=== PATIENT | male | born 1960 | race Two or more races ===

== ENCOUNTER → 2018-04-24 | Outpatient (CLI) | payer OTHER ==
[2018-04-24 17:15] LABS: BASOPHILS % (AUTO) 0.9 % (0.0-2.0); EOSINOPHILS % (AUTO) 3.3 % (1.0-6.0); HEMATOCRIT 49.6 % (41-53); HEMOGLOBIN 16.6 g/dL (13.5-17.5); LYMPHOCYTES # (AUTO) 2.5 K/uL (1.0-4.8); LYMPHOCYTES % (AUTO) 25.9 % (22.0-44.0); MEAN CORPUSCULAR HEMOGLOBIN 24.9 pg (26.0-34.0); MEAN CORPUSCULAR HGB CONC 33.5 G/dL (31.0-37.0); MEAN CORPUSCULAR VOLUME 74 fL (80-100); MONOCYTES # (AUTO) 0.8 K/uL (0.1-1.0); MONOCYTES % (AUTO) 8.2 % (2.0-9.0); NEUTROPHILS # (AUTO) 5.9 K/uL (1.8-7.7); NEUTROPHILS % (AUTO) 61.7 % (40.0-70.0); RED BLOOD CELL COUNT(AUTO) 6.68 MIL/uL (4.50-5.90); RED CELL DISTRIBUTION WIDTH 16.9 % (11.5-14.5)
[2018-04-24 17:17] LABS: APPEARANCE,URINE CLEAR (CLEAR); BILIRUBIN,URINE NEGATIVE (NEGATIVE); GLUCOSE, URINE (UA) NEGATIVE (NEGATIVE); KETONES,URINE NEGATIVE (NEGATIVE); LEUKOCYTE ESTERASE ,URINE NEGATIVE (NEGATIVE); NITRATE,URINE NEGATIVE (NEGATIVE); OCCULT BLOOD,URINE NEGATIVE (NEGATIVE); PH,URINE 6.5 (5.0-8.0); PROTEIN,URINE NEGATIVE (NEGATIVE)
[2018-04-24 17:30] LABS: ANION GAP 8 mmol/L (8-16); CARBON DIOXIDE 31 mmol/L (22-29); CHLORIDE 104 mmol/L (98-107); CREATININE 0.94 mg/dL (0.60-1.30); GLOMERULAR FILTR. RATE CALC > 60 mL/min (>60); POTASSIUM 4.3 mmol/L (3.5-5.1); SODIUM SERUM 143 mmol/L (136-145); UREA NITROGEN, BLOOD 13 mg/dL (7-18)
[2018-04-24 18:14] LABS: HEMOGLOBIN A1C 5.7 % (4.5-6.2)
[2018-04-24 18:15] LABS: PLATELET COUNT (AUTO) 119 K/uL (150-450)
== END | disposition home or self-care (01) ==
LOC: MSR 16:01
DX: M72.2 Plantar fascial fibromatosis (principal)
CPT/HCPCS: 82565; 83036; 84520; 93005

== ENCOUNTER → 2018-05-05 | Day surgery (SDC) | payer OTHER ==
[~2018-05-05] VITALS: Ht 172.7 cm; Wt 102.3 kg
[~2018-05-05] MED LIST: ASPI-1182 PO; ATEN50TA PO; FentaNYL CITRATE-PF 100 MCG/2 ML VIAL IVP ONE; FentaNYL CITRATE-PF 100 MCG/2 ML VIAL ONE; HYDR170P TP; HYDROmorphone 2 MG/ML SYRINGE ONE; KETO120S3 TP; LIDOCAINE/PF 2% 5 ML VIAL IM ONE; LIDOCAINE/PF 2% 5 ML VIAL ONE; MELA3TAB66 PO; MELO-107 PO; MEPERIDINE-PF 25 MG/ML VIAL IVP PRN; MEPERIDINE-PF 25 MG/ML VIAL ONE; MIDAZOLAM HCL 2 MG/2 ML VIAL IVP ONE; MIRT15 PO; MULT1CAP32 PO; OMEG-135 PO; OMEP20 PO; OXYGEN THERAPY IH SCH; POVIDONE-IODINE 30 GM OINTMENT TP ONE; PROPOFOL 1% 20 ML VIAL IVP ONE; RINGERS SOLUTION,LACTATED 1,000 ML IV ONE; RINGERS SOLUTION,LACTATED 500 ML IV ONE; SILD25 PO; VITAD1000 PO
[2018-05-05 10:58] LABS: GLUCOMETER DEV NAME(LOC) SDS 5; GLUCOSE,POINT OF CARE 100 MG/DL (70-110)
[2018-05-05] MEDS: BUPIVACAINE HCL/PF 0.5% 30 ML VIAL ONE ×2 (12:26→14:19)
[2018-05-05] MEDS: HYDROmorphone 2 MG/ML SYRINGE IVP PRN ×2 (13:40→13:52)
[2018-05-05] MEDS: FentaNYL CITRATE-PF 100 MCG/2 ML VIAL IVP PRN ×2 (13:55→14:01)
[2018-05-05 15:14] LABS: GLUCOMETER DEV NAME(LOC) SDS 5; GLUCOSE,POINT OF CARE 91 MG/DL (70-110)
== END | disposition home or self-care (01) ==
LOC: SURGERY 10:18
DX: M72.2 Plantar fascial fibromatosis (principal); I10 Essential (primary) hypertension; E78.00 Pure hypercholesterolemia, unspecified; E11.9 Type 2 diabetes mellitus without complications; F17.210 Nicotine dependence, cigarettes, uncomplicated; Z79.01 Long term (current) use of anticoagulants; Z72.89 Other problems related to lifestyle; Z90.89 Acquired absence of other organs; Z79.82 Long term (current) use of aspirin; Z79.891 Long term (current) use of opiate analgesic; Z98.890 Other specified postprocedural states; Z79.899 Other long term (current) drug therapy; Z88.8 Allergy status to other drugs, medicaments and biological substances
CPT/HCPCS: 28041; 28060; 82962; 88304; 93005; J1170; J2175; J2250; J2704; J3010; J3490 ×2; J7120 ×2